=== PATIENT | female | born 1950 | race Caucasian/White ===

== ENCOUNTER 2019-06-25 07:42 | Outpatient (CLI) | payer OTHER ==
[2019-06-25 12:00] LABS: Hemoglobin 12.6 g/dL (12.0-16.0); Mean Corpuscular HGB CONC 32.7 g/dL (32.0-36.0); Mean Corpuscular Hemoglobin 29.7 pg (27.0-31.0); Mean Platelet Volume 6.8 fL (7.4-10.4); Platelet Count 205 thou/uL (130-400); RBC Distribution Width 12.4 % (11.5-14.5); Red Blood Cell (RBC) Count 4.22 mill/uL (4.20-5.40); White Blood Cell (WBC) Count 7.5 thou/uL (4.8-10.8)
[2019-06-25 12:11] LABS: Bacteria/HPF 4+ HPF (None Seen); Bilirubin Negative (Negative); Blood, Urine Trace (Negative); Clarity Turbid (Clear); Glucose, Urine (Dipstick) 300 mg/dL (Negative); Leukocyte 500 Leu/uL (Negative); Nitrite 2+ (Negative); Protein, Urine (Dipstick) Negative (Neg-Trace); RBC/HPF 0-3 HPF (0-3); Squamous Epithelial 0-3 HPF (0-3); Urobilinogen Normal mg/dL (Less than 2); WBC/HPF Greater than 50 HPF (0-3)
[2019-06-25 12:16] LABS: Anion Gap 11 mmol/L (10-20); BUN (Urea Nitrogen) 18 mg/dL (9.8-20.1); Calc. Creatinine Clearance 0 mL/min (70-130); Calcium 9.3 mg/dL (7.8-10.44); Carbon Dioxide 27 mmol/L (23-31); Chloride 106 mmol/L (98-107); Estimated GFR-MDRD 75; Glucose 185 mg/dL (80-115); Potassium 4.3 mmol/L (3.5-5.1); Sodium 140 mmol/L (136-145)
--- NOTE | 2019-06-28 00:14 | EKG ---
Test Reason : Blood Pressure : / mmHG Vent. Rate : 070 BPM Atrial Rate : 070 BPM P-R Int : 136 ms QRS Dur : 084 ms QT Int : 374 ms P-R-T Axes : 060 019 055 degrees QTc Int : 403 ms Normal sinus rhythm ST abnormality, possible digitalis effect Abnormal ECG No previous ECGs available Confirmed by Chrissy RAMIREZ ([id number]) on 06/28/2019 12:14:26 AM Referred By: BHAVIN Confirmed By:Chrissy RAMIREZ
== END 2019-06-25 07:43 | disposition home or self-care (01) ==
LOC: LABBT 07:42
PROVIDERS: ATTEND Urology
DX: Z01.818 Encounter for other preprocedural examination (principal); T83.711A Erosion of implanted vaginal mesh to surrounding organ or tissue, initial encounter
CPT/HCPCS: 80048; 81001; 85027; 87077; 87086; 87186; 93005; 93010

== ENCOUNTER 2019-06-29 06:06 | Day surgery (SDC) | payer OTHER ==
[2019-06-25 11:00] VITALS: BMI 28.1
[2019-06-29] MEDS ORDERED: metroNIDAZOLE 500 MG/100 ML BAG ONE (06:31)
[2019-06-29] MEDS ORDERED: Midazolam HCl 2 mg/2 ml Vial ONE (08:32)
[2019-06-29] MEDS ORDERED: Fentanyl 100 MCG/2 ML VIAL ONE (08:32)
[2019-06-29] MEDS ORDERED: Iothalamate Meglumine 60% 50 ML VIAL FS ONE (08:41)
[2019-06-29] MEDS ORDERED: ePHEDrine/0.9% NaCl/PF SYRINGE 50 mg/10 ml ONE ×2 (09:49→12:43)
[2019-06-29] MEDS ORDERED: Phenazopyridine HCl 97.5 MG TABLET ONE (10:13)
[2019-06-29] MEDS ORDERED: Ketorolac Tromethamine 30 MG/ML VIAL ONE (10:29)
[2019-06-29] MEDS ORDERED: HYDROcodone/Acetaminophen 5/325 mg Tablet ONE (11:28)
[2019-06-29] MEDS ORDERED: Lidocaine 1% PF 5 ML VIAL ONE (12:43)
[2019-06-29] MEDS ORDERED: Ondansetron PF 4 MG/2 ML Vial ONE (12:43)
[2019-06-29] MEDS ORDERED: Dexamethasone 20 MG/5 ML VIAL ONE (12:43)
[2019-06-29] MEDS ORDERED: PROPOFOL 200 MG/20 ML VIAL ONE (12:43)
--- NOTE | 2019-06-29 13:31 | OP ---
DATE OF PROCEDURE: 06/29/2019 PREOPERATIVE DIAGNOSIS: Eroded midurethral sling. POSTOPERATIVE DIAGNOSES: Eroded midurethral sling and eroded vaginal mesh. PROCEDURES PERFORMED: Transvaginal removal of midurethral sling, transvaginal removal of eroded vaginal mesh, cystoscopy. ANESTHESIA: General. COMPLICATIONS: None. ESTIMATED BLOOD LOSS: 50 mL. SPECIMEN: Vaginal mesh. DESCRIPTION OF PROCEDURE: After informed consent, the patient was taken to the operating room, transferred to the table on her own power. Anesthesia was established. A time-out was performed showing correct patient, site, and procedure. Preoperative antibiotics were administered. She was prepped and draped in the lithotomy position. I placed a weighted speculum and performed examination of her vagina noting eroded mesh in the midurethra consistent with sling. She also had two other areas of eroded mesh along the anterior wall of the vagina near the apex, one midline, one off to the right side. Each is about 2 cm in diameter. The midurethral sling was dissected and a clamp passed behind it before incising down the middle. The two arms of the sling were then dissected laterally before being transected and passed off. I closed the defect with 2-0 chromic suture in a running horizontal mattress fashion. I then removed the midline eroded vaginal mesh by undermining circumferentially about 1 cm. The mesh was then excised and passed off. There were no edges of mesh palpable. The defect was then closed with 2-0 chromic suture. I then repeated the similar procedure for the right-sided vaginal mesh undermining about 1 cm excising completely and ensuring there were no mesh edges palpable. This was also closed with 2-0 chromic suture. The vagina was then irrigated, noting no active bleeding and no further mesh erosion. I then performed cystoscopy with a rigid scope, noting no evidence of urethral injury. No bladder injury or mesh visible in the urethra or bladder. The bladder was then drained. The patient was awoken from anesthesia, transferred back to her hospital bed and taken to PACU in stable condition, where she was discharged home upon recovery. Job ID: [id number]
== END 2019-06-29 12:23 | disposition home or self-care (01) ==
LOC: SDC 06:06
PROVIDERS: ATTEND Urology
PROC: 0TP Urinary System, Removal (ICD-10-PCS; principal; 2019-06-29)
DX: T83.711A Erosion of implanted vaginal mesh to surrounding organ or tissue, initial encounter (principal); T83.712A Erosion of implanted urethral mesh to surrounding organ or tissue, initial encounter; I10 Essential (primary) hypertension; E11.9 Type 2 diabetes mellitus without complications; E03.9 Hypothyroidism, unspecified; F41.9 Anxiety disorder, unspecified; F32.9 Major depressive disorder, single episode, unspecified; Z79.84 Long term (current) use of oral hypoglycemic drugs; Z79.899 Other long term (current) drug therapy; Z88.0 Allergy status to penicillin; Z88.1 Allergy status to other antibiotic agents; Z88.2 Allergy status to sulfonamides; Z88.5 Allergy status to narcotic agent
CPT/HCPCS: 88300; C1769; J0690; J1100; J1885; J2001; J2250; J2405; J2704; J3010

== ENCOUNTER 2020-03-15 10:15 | Outpatient (CLI) | payer OTHER ==
--- NOTE | 2020-03-15 11:21 | BD ---
BONE DENSITOMETRY: Date: 03/15/2020 HISTORY: Postmenopausal screening. FINDINGS: Lumbar Spine: BMD (g/cm2) L1 0.953 T-Score: -0.3 L2 0.978 T-Score: -0.5 L3 1.166 T-Score: 0.7 L4 1.181 T-Score: 1.1 Total 1.078 T-Score: 0.3 Left Femoral Neck: 0.705 T-Score: -1.3 Total Femur: 0.930 T-Score: -0.1 IMPRESSION: 1. Bone mineral density of the lumbar spine within normal range. 2. Bone mineral density of the femoral neck indicate osteopenia. POS: AGW
--- NOTE | 2020-03-22 10:52 | MMO ---
Bilateral MAMMO Bilat Screen [facility]. CLINICAL HISTORY: Patient is 70 years old and is seen for screening. VIEWS: The views performed were: bilateral craniocaudal with tomosynthesis and bilateral mediolateral oblique with tomosynthesis. FILMS COMPARED: The present examination has been compared to prior imaging studies performed at [facility] on 04/27/2015, 04/29/2016 and 06/18/2017. This study has been interpreted with the assistance of computer-aided detection. MAMMOGRAM FINDINGS: The breasts are heterogeneously dense, which could obscure a lesion on mammography. Benign calcifications are noted bilaterally. There are no suspicious masses, suspicious calcifications, or new areas of architectural distortion. IMPRESSION: THERE IS NO MAMMOGRAPHIC EVIDENCE OF MALIGNANCY. A ROUTINE FOLLOW-UP MAMMOGRAM IN 1 YEAR IS RECOMMENDED. THE RESULTS OF THIS EXAM WERE SENT TO THE PATIENT. ACR BI-RADS Category 2 - Benign finding MAMMOGRAPHY NOTE: 1. A negative mammogram report should not delay a biopsy if a dominant of clinically suspicious mass is present. 2. Approximately 10% to 15% of breast cancers are not detected by mammography. 3. Adenosis and dense breasts may obscure an underlying neoplasm. Reported by: DIANE BOYKIN MD Electonically Signed: [id number]
== END 2020-03-15 10:16 | disposition home or self-care (01) ==
LOC: BICMAMMO 10:15
PROVIDERS: ATTEND Family Medicine Sports Medicine
DX: Z12.31 Encounter for screening mammogram for malignant neoplasm of breast (principal); Z13.820 Encounter for screening for osteoporosis; M85.852 Other specified disorders of bone density and structure, left thigh; Z78.0 Asymptomatic menopausal state
CPT/HCPCS: 77063; 77067; 77080

== ENCOUNTER 2021-03-19 09:04 | Outpatient (CLI) | payer MEDICARE, OTHER | END 2021-03-19 09:05 | disposition home or self-care (01) | LOC: BICMAMMO 09:04 | PROVIDERS: ATTEND Family Medicine Sports Medicine | DX: Z12.31 Encounter for screening mammogram for malignant neoplasm of breast (principal) | CPT/HCPCS: 77063; 77067 ==

== ENCOUNTER 2022-04-03 13:40 | Outpatient (CLI) | payer MEDICARE, BC | END 2022-04-03 13:41 | disposition home or self-care (01) | LOC: BICMAMMO 13:40 | PROVIDERS: ATTEND Family Medicine Sports Medicine | DX: Z12.31 Encounter for screening mammogram for malignant neoplasm of breast (principal) | CPT/HCPCS: 77063; 77067 ==

== ENCOUNTER 2023-04-22 12:27 | Outpatient (CLI) | payer MEDICARE, BC | END 2023-04-22 12:28 | disposition home or self-care (01) | LOC: BICMAMMO 12:27 | PROVIDERS: ATTEND Family Medicine Sports Medicine | DX: Z12.31 Encounter for screening mammogram for malignant neoplasm of breast (principal) | CPT/HCPCS: 77063; 77067 ==

== ENCOUNTER 2023-06-27 00:17 | Observation (INO) | payer MEDICARE, BC ==
[2023-06-27] MEDS ORDERED: fentaNYL 50 mcg/mL 1 mL Vial ONE (01:09)
[2023-06-27 01:17] LABS: Actual Bicarbonate (HCO3v) 22.1 mEq/L (22-28); Base Excess -2.7 mEq/L (-2.0 to +3.0); Calcium, Ionized (venous) 1.16 mmol/L (1.16-1.32); Chloride (VBG) 104 mmol/L (98-106); Hematocrit-VBG 43 % (36.0-47.0); Hemoglobin (Hb) 14.5 g/dL (11.7-16.1); Potassium (VBG) 3.81 mmol/L (3.70-5.30); Sodium 143 mmol/L (133-146); pH (venous) 7.376 (7.32-7.43)
[2023-06-27 01:21] LABS: #Eosinphils 0.1 thou/uL (0.0-0.7); #Monocytes 0.4 thou/uL (0.11-0.59); #Neutrophils 13.2 thou/uL (1.40-6.50); %Basophils 0.2 % (0.0-1.0); %Eosinophils 0.7 % (0.0-10.0); %Lymphocytes 10.7 % (21.0-51.0); %Monocytes 2.7 % (0.0-10.0); %Neutrophils 85.3 % (42.0-75.0); Hematocrit 41.3 % (36.0-47.0); Hemoglobin 13.5 g/dL (12.0-16.0); Mean Corpuscular HGB CONC 32.7 g/dL (32.0-36.0); Mean Corpuscular Hemoglobin 29.4 pg (27.0-31.0); Mean Platelet Volume 9.2 fL (7.4-10.4); Platelet Count 197 10x3/uL (130-400); RBC Distribution Width 12.7 % (11.5-14.5); Red Blood Cell (RBC) Count 4.59 mill/uL (4.20-5.40); White Blood Cell (WBC) Count 15.5 10x3/uL (4.8-10.8)
[2023-06-27 01:39] LABS: ALT (SGPT) 19 U/L (8-55); AST (SGOT) 20 U/L (5-34); Alkaline Phosphatase 65 U/L (40-110); Anion Gap 18 mmol/L (10-20); BUN (Urea Nitrogen) 20 mg/dL (9.8-20.1); Bilirubin, Total 0.7 mg/dL (0.2-1.2); Calc. Creatinine Clearance 0 mL/min (70-130); Calcium 9.5 mg/dL (7.8-10.44); Carbon Dioxide 23 mmol/L (23-31); Chloride 104 mmol/L (98-107); Estimated GFR 79; Globulin 3.5 g/dL (2.4-3.5); Glucose 213 mg/dL (83-110); Lipase 30 U/L (8-78); Potassium 3.7 mmol/L (3.5-5.1); Protein, Total 7.5 g/dL (5.8-8.1); Sodium 141 mmol/L (136-145)
[2023-06-27 01:41] LABS: Critical Call Chem-Lactate nur.kb14@0140; Troponin I Less than 0.010 ng/mL (< 0.028)
[2023-06-27 02:44] LABS: Bacteria/HPF 3+ HPF (None Seen); Bilirubin Negative (Negative); Blood, Urine Negative (Negative); CAUTI Indications for Culture Pelvic or flank pain; Clarity Turbid (Clear); Glucose, Urine (Dipstick) Normal (Negative); Ketone, Urine Negative (Negative); Leukocyte 250 Leu/uL (Negative); Nitrite 1+ (Negative); Protein, Urine (Dipstick) 20 mg/dL (Neg-Trace); RBC/HPF 0-3 HPF (0-3); Specific Gravity, Urine 1.011 (1.002-1.036); Urobilinogen Normal mg/dL (Less than 2); WBC/HPF 21-50 HPF (0-3); pH, Urine 6.5 (5.0-9.0)
[2023-06-27 02:45] LABS: Urine Culture Reflex Yes Yes
[2023-06-27] MEDS ORDERED: cefTRIAXone (ROCEPHIN) 1 GM VIAL ONE (03:24)
[2023-06-27] MEDS ORDERED: Sodium Chloride 0.9% 100 ML ONE (03:24)
[2023-06-27 04:19] LABS: Lactic Acid 1.5 mmol/L (0.5-2.2)
[2023-06-27] MEDS ORDERED: Acetaminophen 325 MG TAB PO PRN (05:30)
[2023-06-27 06:39] VITALS: BMI 25.0
[2023-06-27] MEDS ORDERED: Ondansetron PF 4 MG/2 ML Vial IVP PRN (09:35)
[2023-06-27] MEDS ORDERED: Enoxaparin 40 MG (0.4 mL) SYRINGE SC SCH (09:45)
[2023-06-27] MEDS ORDERED: Dextrose 5% in Water 1,000 ML IV PRN (09:50)
[2023-06-27] MEDS ORDERED: Dextrose 50% Abboject 50 ML SYRINGE SLOW IVP PRN (09:50)
[2023-06-27] MEDS ORDERED: HumaLOG 300 UNITS/3 ML VIAL SC PRN ×2 (09:50)
[2023-06-27] MEDS ORDERED: Glucagon 1 MG/ML KIT IM PRN (09:50)
[2023-06-27] MEDS: Sodium Chloride 0.9% 1,000 ML IV SCH ×3 (09:58→22:40)
[2023-06-27] MEDS: Pantoprazole 40 MG VIAL IVP SCH (09:58)
[2023-06-27 10:55] LABS: #Monocytes 0.7 thou/uL (0.11-0.59); #Neutrophils 8.8 thou/uL (1.40-6.50); %Basophils 0.2 % (0.0-1.0); %Eosinophils 0.1 % (0.0-10.0); %Lymphocytes 13.8 % (21.0-51.0); %Monocytes 6.4 % (0.0-10.0); %Neutrophils 79.2 % (42.0-75.0); Hematocrit 34.4 % (36.0-47.0); Hemoglobin 11.1 g/dL (12.0-16.0); Mean Corpuscular HGB CONC 32.3 g/dL (32.0-36.0); Mean Corpuscular Hemoglobin 29.1 pg (27.0-31.0); Mean Corpuscular Volume 90.1 fl (78.0-98.0); Mean Platelet Volume 9.3 fL (7.4-10.4); Platelet Count 190 10x3/uL (130-400); RBC Distribution Width 12.9 % (11.5-14.5); Red Blood Cell (RBC) Count 3.82 mill/uL (4.20-5.40); White Blood Cell (WBC) Count 11.1 10x3/uL (4.8-10.8)
[2023-06-27 11:23] LABS: Anion Gap 10 mmol/L (10-20); BUN (Urea Nitrogen) 17 mg/dL (9.8-20.1); Calc. Creatinine Clearance 77 mL/min (70-130); Calcium 7.9 mg/dL (7.8-10.44); Carbon Dioxide 26 mmol/L (23-31); Chloride 107 mmol/L (98-107); Estimated GFR 86; Glucose 149 mg/dL (83-110); Magnesium 1.8 mg/dL (1.6-2.6); Phosphorus 3.2 mg/dL (2.3-4.7); Potassium 3.9 mmol/L (3.5-5.1); Sodium 139 mmol/L (136-145)
[2023-06-27 11:36] LABS: Free T4 (Free Thyroxine) 0.86 ng/dL (0.70-1.48); Thyroid Stimulating Hormone 0.4845 uIU/mL (0.35-4.94)
[2023-06-27] MEDS ORDERED: Iopamidol-370 76% 500 ML MDV (1 ML CHARGE) ONE (14:59)
[2023-06-27] MEDS ORDERED: Bisacodyl 10 MG SUPP PR PRN (15:05)
[2023-06-27] MEDS ORDERED: Polyethylene Glycol 3350 17 GM Packet PO SCH (15:15)
[2023-06-27] MEDS ORDERED: Docusate 100 MG CAP PO SCH (15:15)
[2023-06-28 05:20] LABS: #Eosinphils 0.1 thou/uL (0.0-0.7); #Monocytes 0.5 thou/uL (0.11-0.59); %Basophils 0.1 % (0.0-1.0); %Eosinophils 1.7 % (0.0-10.0); %Lymphocytes 32.2 % (21.0-51.0); %Monocytes 7.5 % (0.0-10.0); %Neutrophils 58.2 % (42.0-75.0); Hematocrit 32.1 % (36.0-47.0); Hemoglobin 10.4 g/dL (12.0-16.0); Mean Corpuscular HGB CONC 32.4 g/dL (32.0-36.0); Mean Corpuscular Hemoglobin 29.6 pg (27.0-31.0); Mean Corpuscular Volume 91.5 fl (78.0-98.0); Mean Platelet Volume 9.5 fL (7.4-10.4); Platelet Count 162 10x3/uL (130-400); RBC Distribution Width 13.2 % (11.5-14.5); Red Blood Cell (RBC) Count 3.51 mill/uL (4.20-5.40); White Blood Cell (WBC) Count 6.9 10x3/uL (4.8-10.8)
[2023-06-28 05:36] LABS: Anion Gap 7 mmol/L (10-20); BUN (Urea Nitrogen) 9 mg/dL (9.8-20.1); Calc. Creatinine Clearance 79 mL/min (70-130); Calcium 7.7 mg/dL (7.8-10.44); Carbon Dioxide 26 mmol/L (23-31); Chloride 113 mmol/L (98-107); Estimated GFR 89; Glucose 111 mg/dL (83-110); Sodium 142 mmol/L (136-145)
[2023-06-28] MEDS: cefTRIAXone\\ROCEPHIN 1 GM in Sodium Chloride 0.9% 100 ML IVPB SCH (08:00)
[2023-06-28] MEDS ORDERED: Magnesium 2 GM/50 ML(in water) 2 GM in Premix 1 BAG IVPB SCH (08:00)
[2023-06-28] MEDS: Pantoprazole 40 MG VIAL IVP SCH (08:01)
[2023-06-28] MEDS ORDERED: Senokot S 8.6-50 MG TAB PO SCH (09:00)
[2023-06-28] MEDS ORDERED: Enoxaparin 40 MG (0.4 mL) SYRINGE SC SCH (09:00)
[2023-06-28] MEDS ORDERED: GoLYTELY 4,000 ml Bottle PO SCH ×2 (15:00)
[2023-06-28] MEDS ORDERED: hydrALAZINE 25 MG TAB PO PRN (15:26)
[2023-06-28] MEDS: Sodium Chloride 0.9% 1,000 ML IV SCH ×2 (16:13→20:28)
[2023-06-28] MEDS ORDERED: Polyethylene Glycol 3350 17 GM Packet PO SCH (21:00)
[2023-06-28] MEDS ORDERED: Multivit, Therapeutic 1 TAB PO SCH (21:00)
[2023-06-29 04:59] LABS: #Eosinphils 0.2 thou/uL (0.0-0.7); #Monocytes 0.5 thou/uL (0.11-0.59); #Neutrophils 4.5 thou/uL (1.40-6.50); %Basophils 0.3 % (0.0-1.0); %Eosinophils 2.1 % (0.0-10.0); %Lymphocytes 30.5 % (21.0-51.0); %Monocytes 6.8 % (0.0-10.0); Hematocrit 32.8 % (36.0-47.0); Hemoglobin 10.4 g/dL (12.0-16.0); Mean Corpuscular HGB CONC 31.7 g/dL (32.0-36.0); Mean Corpuscular Hemoglobin 29.1 pg (27.0-31.0); Mean Corpuscular Volume 91.6 fl (78.0-98.0); Mean Platelet Volume 9.4 fL (7.4-10.4); Platelet Count 167 10x3/uL (130-400); RBC Distribution Width 13.1 % (11.5-14.5); Red Blood Cell (RBC) Count 3.58 mill/uL (4.20-5.40); White Blood Cell (WBC) Count 7.5 10x3/uL (4.8-10.8)
[2023-06-29 05:27] LABS: Anion Gap 11 mmol/L (10-20); BUN (Urea Nitrogen) 4 mg/dL (9.8-20.1); Calc. Creatinine Clearance 98 mL/min (70-130); Carbon Dioxide 25 mmol/L (23-31); Chloride 111 mmol/L (98-107); Estimated GFR 97; Glucose 102 mg/dL (83-110); Potassium 4.1 mmol/L (3.5-5.1); Sodium 143 mmol/L (136-145)
[2023-06-29 07:46] VITALS: BP 120/69; TEMP 98.2
[2023-06-29] MEDS: cefTRIAXone\\ROCEPHIN 1 GM in Sodium Chloride 0.9% 100 ML IVPB SCH (08:38)
[2023-06-29] MEDS ORDERED: Thyroid 60 MG TAB PO SCH (09:00)
[2023-06-29] MEDS ORDERED: PARoxetine 20 MG TAB PO SCH (09:00)
== END 2023-06-29 10:40 | disposition home or self-care (01) ==
LOC: ERS 00:17 → SURG A 04:29
PROVIDERS: ADMIT Student in an Organized Health Care Education/Training Program; ATTEND Internal Medicine
DX: K59.09 Other constipation (principal); E87.20 Acidosis, unspecified; E86.0 Dehydration; E11.9 Type 2 diabetes mellitus without complications; E03.9 Hypothyroidism, unspecified; I10 Essential (primary) hypertension; E83.42 Hypomagnesemia; F41.9 Anxiety disorder, unspecified; E78.5 Hyperlipidemia, unspecified; Z79.84 Long term (current) use of oral hypoglycemic drugs; Z79.890 Hormone replacement therapy; Z79.899 Other long term (current) drug therapy; Z88.1 Allergy status to other antibiotic agents; Z88.2 Allergy status to sulfonamides; Z88.5 Allergy status to narcotic agent; Z88.8 Allergy status to other drugs, medicaments and biological substances
CPT/HCPCS: 74018; 74019; 74174; 80048 ×3; 81001; 82805; 83036; 83605; 83690; 83735; 84100; 84439; 84481; 84484; 85025 ×2; 87040; 87077; 87086; 87186; 93005; 96361; 96365; 96375; 99285; J3010; 36415; 80053; 84443; 96367; 96372; 96376; C9113; G0378; J0696; J1650; J3475; J3490; J7050; Q9967

== ENCOUNTER 2024-04-26 13:16 | Outpatient (CLI) | payer MEDICARE, BC | END 2024-04-26 13:17 | disposition home or self-care (01) | LOC: BICMAMMO 13:16 | PROVIDERS: ATTEND Family Medicine Sports Medicine | DX: Z12.31 Encounter for screening mammogram for malignant neoplasm of breast (principal) | CPT/HCPCS: 77063; 77067 ==

== ENCOUNTER 2025-01-13 10:11 | Outpatient (CLI) | payer MEDICARE, BC | END 2025-01-13 10:12 | disposition home or self-care (01) | LOC: BICMAMMO 10:11 | PROVIDERS: ATTEND Family Medicine Sports Medicine | DX: Z78.0 Asymptomatic menopausal state (principal); M85.851 Other specified disorders of bone density and structure, right thigh; M85.852 Other specified disorders of bone density and structure, left thigh | CPT/HCPCS: 77080 ==